=== PATIENT | female | born 1980 | race Caucasian/White ===

== ENCOUNTER 2017-03-24 03:03 | Inpatient (IN) | payer BC ==
[~2017-03-24] VITALS: Ht 170.2 cm; Wt 72.7 kg
[~2017-03-24 03:03] MED LIST: MOM PO; MOTRIN 600600 MG/TAB PO; NO HOME MEDICATIONS; PERCOCET 325 MG1 TA2 PO; PRENATAL VITA1 UDTAB PO
[2017-03-24 04:18] LABS: BASO % 0.3 % (0.0-2.0); EOS % 0.1 % (0-4.0); GRAN # 10.7 (1.4-6.5); GRAN % 91.7 % (42.2-75.2); HEMOGLOBIN 12.9 g/dl (12.5-16.0); LYMPH # 0.4 (1.2-3.4); LYMPH % 3.8 % (20.0-51.0); MEAN CELL VOLUME 86 fl (80.0-100.0); MEAN CORPUSCULAR HEMOGLOBIN 30 pg (27.0-31.0); MEAN CORPUSCULAR HGB CONC 35 g/dl (33.0-37.0); MEAN PLATELET VOLUME 9.6 fl (7.4-10.4); MONO # 0.4 (0.1-0.6); MONO % 3.4 % (1.7-9.3); PLATELET COUNT 142 K/mm3 (130-400); WHITE BLOOD COUNT 11.6 K/mm3 (4.8-10.8)
[2017-03-24 04:25] LABS: INR 1.3 (0.8-3.0); PROTHROMBIN TIME 14.9 SECONDS (9.7-12.8)
[2017-03-24 04:27] LABS: PARTIAL THROMBOPLASTIN TIME 29.5 SECONDS (26.0-37.0)
[2017-03-24 04:31] LABS: ADJUSTED CALCIUM 8.7 mg/dL (8.4-10.2); ALANINE AMINOTRANSFERASE 35 U/L (9-52); ALKALINE PHOSPHATASE 63 U/L (50-136); ANION GAP 13 mmol/L (7-16); BILIRUBIN,TOTAL 1.1 mg/dL (0.0-1.0); BLOOD UREA NITROGEN 7 mg/dL (7-17); CALCIUM 8.7 mg/dL (8.4-10.2); CARBON DIOXIDE 23 mmol/L (22-30); CHLORIDE 102 mmol/L (98-107); CREATININE, serum 0.63 mg/dL (0.52-1.25); GLUCOSE 115 mg/dL (74-106); POTASSIUM 3.3 mmol/L (3.4-5.0); SODIUM 138 mmol/L (137-145); TOTAL PROTEIN 7.2 gm/dL (6.4-8.2)
[2017-03-24 04:42] LABS: TROPONIN-I < 0.012 ng/mL (0.000-0.034)
[2017-03-24 08:59] VITALS: BP 99/53; PULSE 90; PULSE 901; TEMP 97.6
[2017-03-24 11:03] VITALS: BP 93/53; PULSE 87; TEMP 98.7
[2017-03-24 12:00] VITALS: BP 117/85; PULSE 95; TEMP 99.3
[2017-03-24 15:10] VITALS: BP 94/50; PULSE 95; TEMP 98.5
[2017-03-24 21:22] VITALS: BP 102/51; PULSE 89; TEMP 98.5
[2017-03-25 00:11] VITALS: BP 102/60; PULSE 88; TEMP 99
[2017-03-25 03:31] VITALS: BP 102/58; PULSE 84; TEMP 98.1
[2017-03-25 08:08] LABS: HEMATOCRIT 34.1 % (37.0-47.0); HEMOGLOBIN 11.5 g/dl (12.5-16.0); MEAN CELL VOLUME 87 fl (80.0-100.0); MEAN CORPUSCULAR HEMOGLOBIN 29 pg (27.0-31.0); MEAN CORPUSCULAR HGB CONC 34 g/dl (33.0-37.0); MEAN PLATELET VOLUME 9.6 fl (7.4-10.4); PLATELET COUNT 121 K/mm3 (130-400); WHITE BLOOD COUNT 8.7 K/mm3 (4.8-10.8)
[2017-03-25 08:09] LABS: ADD PATHOLOGY DIFF REVIEW NO
[2017-03-25 08:17] VITALS: BP 107/64; PULSE 74; TEMP 97.7
[2017-03-25 08:19] LABS: CREATININE, serum 0.57 mg/dL (0.52-1.25); POTASSIUM 3.1 mmol/L (3.4-5.0)
[2017-03-25 10:14] LABS: BAND 51 % (0-10); LYMPHOCYTE 7 % (20.0-51.0); NEUTROPHILS 40 % (42.0-75.2); TOTAL CELLS COUNTED 100
[2017-03-25 10:15] LABS: PLATELET ESTIMATE DECREASED (NORMAL)
[2017-03-25 12:00] VITALS: BP 109/67; PULSE 69; TEMP 98.5
[2017-03-25 15:42] VITALS: BP 106/61; PULSE 66; TEMP 97.8
[2017-03-25 21:00] VITALS: BP 109/71; PULSE 71; TEMP 98.7
[2017-03-26 01:37] VITALS: BP 113/67; PULSE 66; TEMP 98.4
[2017-03-26 05:38] VITALS: BP 125/73; PULSE 55; TEMP 98.9
[2017-03-26 07:11] LABS: BASO % 0.2 % (0.0-2.0); EOS % 0.2 % (0-4.0); GRAN # 3.6 (1.4-6.5); GRAN % 76.4 % (42.2-75.2); LYMPH # 0.9 (1.2-3.4); LYMPH % 18.4 % (20.0-51.0); MEAN CELL VOLUME 86 fl (80.0-100.0); MEAN CORPUSCULAR HGB CONC 34 g/dl (33.0-37.0); MEAN PLATELET VOLUME 9.5 fl (7.4-10.4); MONO # 0.2 (0.1-0.6); MONO % 3.9 % (1.7-9.3); PLATELET COUNT 117 K/mm3 (130-400); RED BLOOD COUNT 3.55 M/mm3 (4.10-5.30); WHITE BLOOD COUNT 4.7 K/mm3 (4.8-10.8)
[2017-03-26 07:15] LABS: HEMATOCRIT 30.6 % (37.0-47.0); HEMOGLOBIN 10.4 g/dl (12.5-16.0); MEAN CORPUSCULAR HEMOGLOBIN 29 pg (27.0-31.0)
[2017-03-26 07:23] LABS: CALCIUM 8.5 mg/dL (8.4-10.2); CREATININE, serum 0.62 mg/dL (0.52-1.25); POTASSIUM 3.7 mmol/L (3.4-5.0)
[2017-03-26 08:49] VITALS: BP 127/79; PULSE 55; TEMP 98.4
[2017-03-26 11:54] VITALS: BP 138/88; PULSE 57; TEMP 98.4
[2017-03-26] MEDS ORDERED: ZOFRAN 4MG T4 MG/TAB PO (12:19)
[2017-03-26] MEDS ORDERED: PROAIR HFA0.09 MG/AC IH (12:20)
[2017-03-26] MEDS ORDERED: OMNICEF 300MG300 MG PO (12:20)
== END 2017-03-26 13:09 | disposition home or self-care (01) | DRG 194 ==
LOC: COL.ER 03:03 → MEDICAL 07:35
PROVIDERS: Emergency Medicine; Family Medicine
DX: J10.08 Influenza due to other identified influenza virus with other specified pneumonia (principal); R04.2 Hemoptysis; J13 Pneumonia due to Streptococcus pneumoniae; E87.6 Hypokalemia
CPT/HCPCS: 99222-AI; 99233-AI; 99239; A9284; J1885; J1956; J2405; J2765; J3010; J7030; J7050; Q9967

== ENCOUNTER → 2022-07-03 | Outpatient (CLI) | payer BC ==
[~2022-07-03] MED LIST changes: +OMNICEF 300MG300 MG PO; +PROAIR HFA0.09 MG/AC IH; +ZOFRAN 4MG T4 MG/TAB PO
== END ==
LOC: MC.RAD 12:57
DX: Z12.31 Encounter for screening mammogram for malignant neoplasm of breast (principal)